=== PATIENT | female | born 1995 | race Caucasian/White ===

== ENCOUNTER 2017-07-06 21:59 | Emergency (ER) | payer OTHER ==
[2017-07-07] MEDS: LIDOCAINE/MYLANTA 40 ML BTL PO (02:21)
== END 2017-07-07 02:00 | disposition home or self-care (01) ==
LOC: FTE 21:59
DX: K21.9 Gastro-esophageal reflux disease without esophagitis (principal)
CPT/HCPCS: 70360; 71045; 93005; 99284-25

== ENCOUNTER 2017-08-07 09:54 | Day surgery (SDC) | payer OTHER ==
[2017-08-07] MEDS ORDERED: PROPOFOL 20 ML (11:13)
[2017-08-07] MEDS ORDERED: MIDAZOLAM 1 MG/ML 2 ML INJ (11:13)
[2017-08-07] MEDS ORDERED: LIDOCAINE 2% (SDV) 5 ML INJ (11:13)
== END 2017-08-07 12:57 | disposition home or self-care (01) ==
LOC: GIL 09:54
DX: K21.9 Gastro-esophageal reflux disease without esophagitis (principal); K29.60 Other gastritis without bleeding; E66.01 Morbid (severe) obesity due to excess calories; Z68.41 Body mass index [BMI] 40.0-44.9, adult
CPT/HCPCS: 43239; 84703; 87081

== ENCOUNTER 2018-05-08 18:27 | Emergency (ER) | payer SELFPAY, OTHER ==
[2018-05-08] MEDS: BELLADONNA/PHENOBARBITAL TAB PO (19:31)
[2018-05-08] MEDS: LIDOCAINE/MYLANTA 40 ML BTL PO (19:31)
== END 2018-05-08 19:49 | disposition home or self-care (01) ==
LOC: FTE 18:27
DX: K29.70 Gastritis, unspecified, without bleeding (principal)
CPT/HCPCS: 99283